=== PATIENT | male | born 1975 | race Caucasian/White ===

== ENCOUNTER 2023-11-17 15:45 | Emergency (ER) | payer OTHER ==
[~2023-11-17] VITALS: Ht 185.4 cm; Wt 135.8 kg
[2023-11-17] MEDS ORDERED: KETOROLAC TROMETHAMINE 30 MG/ML VIAL IM ONE (16:15)
[2023-11-17] MEDS ORDERED: methocarbamoL 500 MG TABLET PO ONE (16:15)
[2023-11-17] MEDS ORDERED: METHOCARBAMOL500 MG PO (16:22)
[2023-11-17] MEDS ORDERED: CYCLOBENZAPRINE10 MG PO (16:22)
[2023-11-17] MEDS ORDERED: PRED PH-MOXI-BRO5 ML OP (16:22)
[2023-11-17] MEDS ORDERED: ZESTRIL20 MG PO (16:30)
[2023-11-17] MEDS ORDERED: ZOLOFT100 MG PO (16:30)
[2023-11-17] MEDS ORDERED: NORVASC5 MG PO (16:30)
[2023-11-17] MEDS ORDERED: CYCLOBENZAPRINE HCL 10 MG TAB PO ONE (16:30)
[2023-11-17] MEDS ORDERED: PREDNISONE20 MG PO (16:57)
[2023-11-17 17:00] VITALS: BP 164/94
== END 2023-11-17 17:00 | disposition home or self-care (01) ==
LOC: ED 15:45
DX: M62.838 Other muscle spasm (principal); I10 Essential (primary) hypertension
CPT/HCPCS: 96372; 99283; J1885